=== PATIENT | female | born 1985 | race Caucasian/White ===

== ENCOUNTER 2021-01-13 14:16 | Emergency (ER) | payer OTHER, SELFPAY ==
--- NOTE | 2021-01-13 14:21 | ED.URI ---
HPI - URI/Sore Throat General Chief Complaint: Upper Respiratory Infection Stated Complaint: body ache nausea sore throat Time Seen by Provider: 01/13/21 14:21 Source: patient and RN notes reviewed Mode of arrival: ambulatory Limitations: no limitations History of Present Illness HPI Narrative: 35-year-old female presents to the [facility] with complaints of body aches, cold chills, head pressure and cough. Patient states the cough started 2 days ago all other symptoms started today. On January 05 she had a possible exposure to a COVID-19 patient. Has been quarantined from her children but has been going to work. Patient states that she went to the clinic this morning and had a rapid Covid test which was negative, now requesting a return to work note. Related Data Home Medications Medication Instructions Recorded Confirmed Flexeril 01/13/21 Vistaril 01/13/21 Allergies Allergy/AdvReac Type Severity Reaction Status Date / Time Penicillins Allergy Unknown Hives Unverified 01/13/21 14:46 propoxyphene Allergy Unknown Hives Unverified 01/13/21 14:46 Review of Systems Review of Systems: All systems reviewed & are unremarkable except as noted in HPI and below Constitutional: Constitutional: Reports as per HPI, Reports chills, Reports fatigue, Denies fever(s) and Denies weakness Eyes: Eyes: Reports no additional eye complaints and Denies photophobia ENT: Reports nasal congestion and Reports sore throat Cardiovascular: Cardiovascular: Reports no additional cardiovascular complaints and Denies chest pain Respiratory: Respiratory: Reports as per HPI, Denies chest congestion, Reports cough, Reports dyspnea and Denies wheezing Gastrointestinal: Gastrointestinal: Reports no additional gastrointestinal complaints, Denies abdominal pain, Denies diarrhea, Denies nausea and Denies vomiting Musculoskeletal: Musculoskeletal: Reports no additional musculoskeletal complaints, Denies back pain, Reports myalgias and Denies muscle cramps Integumentary/Breasts: Skin/Breast: Reports system reviewed and no additional complaints, except as docu, Denies pruritus, Denies erythema and Denies rash Neurologic: Reports system reviewed and no additional complaints, except as documented, Denies dizziness, Denies focal weakness and Denies numbness Psychiatric: Psychiatric: Reports no additional psychiatric complaints Endocrine: Endocrine: Reports no additional endocrine complaints PMFSH Comments At the time of my signature, I reviewed and agree with the nursing past medical, surgical, social, and family history. There is no relevant family history pertinent to the patient complaint. Exam Const: General: no acute distress, alert and ill appearing acutely Nutritional Appearance: well nourished Orientation/consciousness: patient oriented x3 HENMT: Ears: external ears normal and TM's normal bilaterally General nose exam: Normal external nose present and Nasal discharge present clear Face and sinus: normal facial exam and sinus tenderness frontal and maxillary Mouth: Yes Normal oral and palatal mucosa present and Yes lip normal Throat: tonsils normal, uvula midline and postnasal drainage Eyes: Conjunctivae: conjunctivae normal Pupils: Equal, round and reactive pupils present Neck: Neck: normal visual inspection and no lymphadenopathy Chest: Chest palpation & inspection: normal inspection of the chest Resp: Effort & Inspection: normal respiratory effort and no use of accessory muscles Auscultation: no crackles, no rales, no rhonchi and no wheezes Other: Strong cough noted. Cardio: Rate: regular rate Rhythm: regular rhythm Back/Spine/Pelvis: Back: no CVA tenderness Skin: General skin exam: normal color Rashes: no rashes Neuro: General: patient oriented x3 and moves all extremities Speech: normal speech Gait exam (Neuro): Normal gait present Extrem: General: normal to inspection Psych: Appearance: grossly normal and well kempt Mental
[2021-01-13 14:24] VITALS: BP 123/76; PULSE 98; RESP 18; O2SAT 99
[2021-01-14 19:55] LABS: SARS-CoV-2 RNA PCR Negative
== END 2021-01-13 14:55 | disposition home or self-care (01) ==
PROVIDERS: Emergency Provider Nurse Practitioner; PCP Nurse Practitioner Family
DX: J40 Bronchitis, not specified as acute or chronic (principal); Z20.822 Contact with and (suspected) exposure to COVID-19
CPT/HCPCS: 87081; 87804; 87880; 99213; C9803; G0463; U0003; U0005

== ENCOUNTER 2021-04-01 09:07 | Emergency (ER) | payer OTHER, SELFPAY ==
[2021-04-01 09:19] VITALS: BP 137/83; PULSE 80; RESP 20; TEMP 37.7; O2SAT 96
--- NOTE | 2021-04-01 09:37 | ED.ANIMALBIT ---
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 BLEEDING CONTROLLED. PATIENT STATES DOG IS UP TO DATE WITH IMMUNIZATIONS AND ANIMAL CONTROL HAS BEEN NOTIFIED. Related Data Home Medications Medication Instructions Recorded Confirmed hydroxyzine HCl 25 mg PO HS 04/01/21 04/01/21 venlafaxine 75 mg PO DAILY 04/01/21 04/01/21 Allergies Allergy/AdvReac Type Severity Reaction Status Date / Time Penicillins Allergy Unknown Hives Verified 04/01/21 10:02 propoxyphene Allergy Unknown Hives Verified 04/01/21 10:02 Review of Systems Review of Systems: CONSTITUTIONAL: Denies fever, chills, or sweats. EYES: Denies visual changes, redness, or discharge. ENT: Denies rhinorrhea, congestion, sore throat, or otalgia. CARDIOVASCULAR: Denies chest pain, palpitations, or edema. RESPIRATORY: Denies cough or dyspnea. GASTROINTESTINAL: Denies abdominal pain, nausea, vomiting, or diarrhea. GENITOURINARY: Denies dysuria or hematuria. SKIN: Denies rash or itching. Dog bite to chin MUSCULOSKELETAL: Denies back pain, joint pain, or myalgia. NEUROLOGIC: Denies headache, numbness, or weakness. PSYCHIATRIC: Denies anxiety or depression. PMFSH Comments At time of signature, agree with nursing past medical, surgical, social and family history. There is no relevant family history pertinent to the presenting complaint Exam Narrative: GENERAL: Well-appearing, well-nourished, and in no acute distress. HEAD: Normocephalic, atraumatic. EYES: PERRLA and EOMI. ENT: Nares clear, no rhinorrhea or epistaxis. Mucous membranes moist. NECK: Supple. CHEST: Clear to auscultation. No respiratory distress. HEART: Regular rate and rhythm. No murmur heard. Normal peripheral pulses. ABDOMEN: Soft, nontender, nondistended, normal active bowel sounds. EXTREMITIES: Normal range of motion. No edema. SKIN: Warm, dry, no rash. NEURO: No focal deficits. Alert and oriented x3. Gilbert Coma Scale Eye Opening: Spontaneous 4 [place] Coma Scale Motor: Obeys Commands 6 [place] Coma Scale Verbal: Oriented 5 [place] Coma Scale Total 15 Course Vital Signs Vital signs: Vital Signs Temperature 37.7 C H 04/01/21 09:19 Pulse Rate 80 04/01/21 09:19 Respiratory Rate 20 04/01/21 09:19 Blood Pressure 137/83 04/01/21 09:19 Pulse Oximetry 96 04/01/21 09:19 Temperature 37.7 C H 04/01/21 09:19 Pulse Rate 80 04/01/21 09:19 Respiratory Rate 20 04/01/21 09:19 Blood Pressure 137/83 04/01/21 09:19 Pulse Oximetry 96 04/01/21 09:19 MDM - Animal Bite Differential Diagnosis Differential diagnosis: Likely dog bite Medical Records Attestation: I reviewed the patient's medical records. Lab Data Attestation: I reviewed the patient's lab results. Critical Care Time Critical Care Time Critical Care Time: No Discharge Plan Discharge Clinical Impression: Dog bite Patient Disposition: Acute Care Hospital Condition: Stable Instructions: Animal Bite (ED) Additional Instructions: Go directly to [facility] emergency room and do not eat or drink in route to [facility] emergency room Prescriptions: No Action venlafaxine 75 mg capsule,extended release 24hr 75 mg PO DAILY RF: 0 hydroxyzine HCl 25 mg tablet 25 mg PO HS RF: 0 Follow-up/Referrals: Lorri,Stephanie Vital APN [Primary Care Provider] -
--- NOTE | 2021-04-01 09:54 | ED.ANIMALBIT ---
HPI - Animal Bite General Chief Complaint: Animal Bite Stated Complaint: Dog bite Time Seen by Provider: 04/01/21 09:37 Source: patient History of Present Illness HPI narrative: Patient presents with multiple lacerations to her chin. 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 Patient states her last tetanus shot was 2 months ago. complaint: animal bite Related Data Home Medications Medication Instructions Recorded Confirmed hydroxyzine HCl 25 mg PO HS 04/01/21 04/01/21 venlafaxine 75 mg PO DAILY 04/01/21 04/01/21 Allergies Allergy/AdvReac Type Severity Reaction Status Date / Time Penicillins Allergy Unknown Hives Verified 04/01/21 10:02 propoxyphene Allergy Unknown Hives Verified 04/01/21 10:02 Review of Systems Review of Systems: CONSTITUTIONAL: Denies fever, chills, or sweats. EYES: Denies visual changes, redness, or discharge. ENT: Denies rhinorrhea, congestion, sore throat, or otalgia. CARDIOVASCULAR: Denies chest pain, palpitations, or edema. RESPIRATORY: Denies cough or dyspnea. GASTROINTESTINAL: Denies abdominal pain, nausea, vomiting, or diarrhea. GENITOURINARY: Denies dysuria or hematuria. SKIN: Denies rash or itching. Dog bite to chin MUSCULOSKELETAL: Denies back pain, joint pain, or myalgia. NEUROLOGIC: Denies headache, numbness, or weakness. PSYCHIATRIC: Denies anxiety or depression. PMFSH Comments At time of signature, agree with nursing past medical, surgical, social and family history. There is no relevant family history pertinent to the presenting complaint Exam Narrative: GENERAL: Well-appearing, well-nourished, and in no acute distress. HEAD: Normocephalic, atraumatic. EYES: PERRLA and EOMI. ENT: Nares clear, no rhinorrhea or epistaxis. Mucous membranes moist. NECK: Supple. CHEST: Clear to auscultation. No respiratory distress. HEART: Regular rate and rhythm. No murmur heard. Normal peripheral pulses. ABDOMEN: Soft, nontender, nondistended, normal active bowel sounds. EXTREMITIES: Normal range of motion. No edema. SKIN: Warm, dry, no rash. 1-1/2 x 2 cm gaping laceration to right lower chin left lower chin 1 cm superficial laceration as well as a 2-1/2 gaping centimeter laceration to the left lower chin both are through and through into the inner lip NEURO: No focal deficits. Alert and oriented x3. Gilbert Coma Scale Eye Opening: Spontaneous 4 [place] Coma Scale Motor: Obeys Commands 6 [place] Coma Scale Verbal: Oriented 5 [place] Coma Scale Total 15 Course Vital Signs Vital signs: Vital Signs Temperature 37.7 C H 04/01/21 09:19 Pulse Rate 80 04/01/21 09:19 Respiratory Rate 20 04/01/21 09:19 Blood Pressure 137/83 04/01/21 09:19 Pulse Oximetry 96 04/01/21 09:19 Temperature 37.7 C H 04/01/21 09:19 Pulse Rate 80 04/01/21 09:19 Respiratory Rate 20 04/01/21 09:19 Blood Pressure 137/83 04/01/21 09:19 Pulse Oximetry 96 04/01/21 09:19 Addressed elevated BP today. Today's blood pressure higher than recommended range. Discussed importance of follow -up with PCP and possible predatory animal exterminator effects/cardiovascular events related to HTN. Currently patient denies headache, dizziness, vision changes, CP or shortness of breath. MDM - Animal Bite Differential Diagnosis Differential diagnosis: Likely bite by animal, cat bite, dog bite and rabies contact Medical Records Attestation: I reviewed the patient's medical records. Lab Data Attestation: I reviewed the patient's lab results. Critical Care Time Critical Care Time Critical Care Time: No Discharge Plan Discharge Clinical Impression: Dog bite Patient Disposition: Acute Care Hospital Condition: Stable Instructions: Animal Bite (ED) Additional Instructions: Go directly to [facility] emergency room and do not eat or drink in route to [facility] emergency room Prescriptions: No Action venlafaxine 75 mg capsule,extended release 24hr 75 mg PO DAILY RF: 0 hy
[2021-04-01] MEDS: KETOROLAC (*BKC) 60 MG/2 ML VIAL IM (10:06)
== END 2021-04-01 10:21 | disposition short-term general hospital (02) ==
PROVIDERS: Emergency Provider Nurse Practitioner Family; PCP Nurse Practitioner Family
DX: S01.81XA Laceration without foreign body of other part of head, initial encounter (principal); W54.0XXA Bitten by dog, initial encounter; Y99.0 Civilian activity done for income or pay; F41.9 Anxiety disorder, unspecified
CPT/HCPCS: 96372; 99213; G0463; J1885

== ENCOUNTER 2022-12-25 12:20 | Outpatient (CLI) | payer OTHER, SELFPAY ==
[2022-12-25 12:43] LABS: Basophils Absolute Auto 0.1 K/mm3 (0.0-0.1); Basophils Percent Auto 0.5 % (0.2-1.2); Eosinophils Absolute Auto 0.1 K/mm3 (0-0.3); Eosinophils Percent Auto 0.7 % (0-4.4); Hematocrit 40.2 % (37.0-47.0); Immature Granulocyte Absolute 0.02 K/mm3 (0.00-0.031); Immature Granulocyte Percent A 0.2 % (0-0.5); Lymphocytes Absolute Auto 5.16 K/mm3 (0.9-3.2); Lymphocytes Percent Auto 46.5 % (18.3-44.2); Mean Corpuscular HGB Conc 32.3 g/dl (32-36); Mean Corpuscular Hemoglobin 26.9 pg (26-34); Mean Corpuscular Volume 83.1 fl (80-100); Mean Platelet Volume 9.3 fl (7.4-10.4); Monocytes Absolute Auto 0.7 K/mm3 (0.1-0.6); Neutrophils Absolute Auto 5.1 K/mm3 (1.3-6.7); Neutrophils Percent Auto 46.1 % (45.5-73.1); Platelet Count Result 521 k/mm3 (150-375); Red Blood Count 4.84 M/mm3 (4.2-5.4); Red Cell Distribution Width 13.8 % (11.5-14.5); White Blood Count 11.1 K/mm3 (4.5-10.0)
[2022-12-25 12:58] LABS: Atypical Lymphocytes Present; Platelet Estimate Increased (Adequate); Schistocytes None Seen (NORMAL)
== END 2022-12-25 12:21 | disposition home or self-care (01) ==
LOC: ANHLAB 12:20
PROVIDERS: PCP Nurse Practitioner Family; Visit Provider Obstetrics & Gynecology
DX: N92.1 Excessive and frequent menstruation with irregular cycle (principal)
CPT/HCPCS: 36415; 84443; 85025

== ENCOUNTER 2023-01-10 00:31 | Day surgery (SDC) | payer OTHER, SELFPAY ==
[2023-01-03 15:39] VITALS: BMI 37.0
--- NOTE | 2023-01-03 15:46 | SUR.PREOP ---
Report to the Outpatient Waiting Room, entrance under the green pavilion located off [facility], at time 0600 on date 01/10/23. Planned Procedure Time: 0730. Time changes happen often and if your time is changed the preop area will call you the afternoon before. - You and your visitor will be asked to self-screen and do not enter if you have any COVID symptoms. - A mask is optional within the hospital at this time. Patients may have clear liquids (water, carbonated beverages, clear teas, apple juice) until 3 hours prior to surgery with a maximum of 20 ounces. - No food from midnight until time of surgery - Infants may have breast milk until 4 hours before surgery, infant formula 6 hours prior to surgery. - Children will be allowed to drink immediately following surgery. If applicable, please bring a bottle or sippy cup to assist with drinking. Juice, water, soda, and popsicles are readily available. For infants on formula, please bring formula the day of surgery. Pacifiers are allowed. Take the following medications with a SIP of water the morning of surgery: N/A DO NOT STOP ANY OF YOUR OTHER PRESCRIPTION MEDICATIONS PRIOR TO SURGERY ?EXCEPT THE FOLLOWING Medications to discontinue per physician STOP ALL VITAMINS AND SUPPLIMENTS 3 DAYS PRIOR Date to take last dose 01/07/23 Please no make-up, nail thai, hairspray, perfume, deodorant, or body powder the day of surgery. No jewelry (including any body piercings) or valuables the day of surgery, leave them at home. Please take a shower or bath the night before, or the morning of, surgery with an antibacterial soap. Wear comfortable, loose fitting clothing. Children are encouraged to wear pajamas. - Jewelry must be removed prior to entering the operating room. Rings and piercings that are not removed may be cut off. - The hospital will not accept responsibility for valuables. - Please leave all valuables, including medications, at home the day of surgery. If you are going home after surgery, a licensed driver license examiner must drive you home. - NO public transportation without another adult if you receive anesthesia. - We recommend that an adult stay with you for 24 hours following discharge. - We also recommend that you do not drive, make important decision, drink alcoholic beverages, or take any drugs that were not prescribed by your health care provider for at least 24 hours after your discharge time. For Pediatric surgeries, we recommend two adults accompany the child home. Follow any additional instructions given to you from your surgeon. If you or anyone in your household have experienced Covid symptoms in the past week, please notify your surgeon or the nurse liaison at the phone number below for possible testing. Telephone instructions given to MAGUE FERRELL and asked if any additional questions and then verbalized understanding. Patient advised to call surgeon office or pre surgery nurse liaison [phone] if any additional questions.
--- NOTE | 2023-01-09 16:29 | PM.IMHP ---
H&P: HPI History of Present Illness Date/Time: 01/09/23 16:29 37-year-old 5 para [id number] female presents with complaints of heavy vaginal bleeding cramping and discomfort. States that menstrual cycles are now occurring every 3 weeks with 7 today and days very heavy with clotting cramping as well as 3-4 days at her very heavy bleeds through both tampon and pad. Has been seen emergency room for this pain and discomfort but no other significant evaluation had been undertaken. She did have an ultrasound which essentially was normal with no other significant etiology of her pain. Also has had Essure which she states since that time she has had a place she has had significant pain and discomfort and the adnexal areas bilaterally. We have discussed multiple options and will per proceeding with hysterectomy as noted in her assessment and plan below. Chief Complaint: 1. Menometrorrhagia Review of Systems Review of Systems: All systems reviewed & are unremarkable except as noted in HPI and below PMFSH Past Medical History Medical History Acute anxiety Anemia Encounter for Essure implantation 2016 [facility] Surgical History Surgical History History of cholecystectomy History of facial surgery dog bite Family History Family History Father Gout Diabetes mellitus Mother Diabetes mellitus Social History Social History Years smoked: 15 Smoking status: Current every day smoker Tobacco type: cigarettes Alcohol intake: never Substance use: never Substance use type: does not use Living arrangements: with family Occupation/Education: occupation 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 Gender identity (if verbalized by the patient): Female Sexual Orientation (if Verbalized by the Patient): Straight or Heterosexual Spiritual care concerns: No Meds Home Medications and Allergies Home Medications Medication Instructions Recorded Confirmed Type hydroxyzine HCl 25 mg tablet 25 mg PO HS 04/01/21 01/03/23 History venlafaxine 75 mg capsule,extended 75 mg PO HS 04/01/21 01/03/23 History release 24 hr ergocalciferol (vitamin D2) 1,250 1,250 mcg PO WEEKLY 01/03/23 01/03/23 History mcg (50,000 unit) capsule ibuprofen 800 mg PO DAILY 01/03/23 01/03/23 History iron 1 tab-cap PO DAILY 01/03/23 01/03/23 History Allergies Allergy/AdvReac Type Severity Reaction Status Date / Time Penicillins Allergy Unknown Hives Verified 01/03/23 15:11 propoxyphene Allergy Unknown Hives Verified 01/03/23 15:11 Exam Const: General: cooperative, healthy appearing and comfortable Resp: Effort & Inspection: normal respiratory effort Auscultation: clear to auscultation bilaterally Cardio: Rate: regular rate Rhythm: regular rhythm GI: Inspection: normal to inspection Auscultation: normal bowel sounds : External Female Exam: normal external appearance Speculum Exam - Vagina: normal appearance of the vagina Speculum Exam - Cervix: normal appearance of the cervix Bimanual exam- vagina & uterus: enlarged ( 8-10 week size) Bimanual Exam- Adnexa, other: normal adnexae Assessment and Plan Assessment and plan (1) Menometrorrhagia: Code(s): N92.1 - Excessive and frequent menstruation with irregular cycle Status: Acute (2) Dysmenorrhea: Code(s): N94.6 - Dysmenorrhea, unspecified Status: Acute (3) Enlarged uterus: Code(s): N85.2 - Hypertrophy of uterus Status: Acute (4) Encounter for removal of Essure: Code(s): Z45.89 - Encounter for adjustment and management of other implanted devices Status: Acute Plan 1. Proceed with robotic assisted laparoscopic total hysterectomy with bilateral salpingectomy. Ovarian preser
[2023-01-10] VITALS (14 sets, daily range): BP systolic 97–122; BP diastolic 56–90; PULSE 69–90; RESP 12–18; TEMP 36.6–37.1; O2SAT 93–98
[2023-01-10] MEDS: LACTATED RINGERS 1,000 ML 30 ML IV CONT ×2 (07:00→09:10)
[2023-01-10] MEDS: ACETAMINOPHEN 500 MG TABLET 1000 MG PO (07:00)
[2023-01-10] MEDS: KETOROLAC 15 MG/ML VIAL (*BKC) IV PUSH (07:00)
--- NOTE | 2023-01-10 07:11 | WPDHPUPDATE1 ---
History and Physical Update Update Date/Time: 01/10/23 07:11 History and Physical has been reviewed, including an updated exam of the patient. There are NO changes in the patient's condition. Risks, benefits, and alternatives have been discussed and questions answered. Patient agrees to proceed with procedure.
--- NOTE | 2023-01-10 07:13 | P.PNAN_ITS ---
Anes - Initial Pre Proc Eval Procedure: Operation Date: 01/10/23 07:30 Proposed Procedures p Robotic Assisted Total Laparoscopic Hysterectomy with Bilateral Salpingectomy - Seng Floyd MD Date/Time: 01/10/23 07:13 Surgeon: Seng Floyd MD Pre Op Diagnosis: menometrorrhagia Patient Data Age: 37 Gender: F Height: 1.63 m Weight: 97.98 kg Allergies Allergy/AdvReac Type Severity Reaction Status Date / Time Penicillins Allergy Unknown Hives Verified 01/03/23 15:11 propoxyphene Allergy Unknown Hives Verified 01/03/23 15:11 Home Medications Medication Instructions Recorded Confirmed Type hydroxyzine HCl 25 mg tablet 25 mg PO HS 04/01/21 01/03/23 History venlafaxine 75 mg capsule,extended 75 mg PO HS 04/01/21 01/03/23 History release 24 hr ergocalciferol (vitamin D2) 1,250 1,250 mcg PO WEEKLY 01/03/23 01/03/23 History mcg (50,000 unit) capsule ibuprofen 800 mg PO DAILY 01/03/23 01/03/23 History iron 1 tab-cap PO DAILY 01/03/23 01/03/23 History Patient hx anesthesia problems: none Family hx anesthesia problems: none Results Review: All pre-operative results and documents have been reviewed as part of the pre- operative evaluation. 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 Gender identity (if verbalized by the patient): Female Sexual Orientation (if Verbalized by the Patient): Straight or Heterosexual Spiritual care concerns: No Anes - Eval Final PreProcedure Day of Procedure 01/10/23 07:13 Patient weight: obese Heart: regular rate and rhythm Lungs: clear to auscultation Airway: Mallampati scale class III (has multiple chipped teeth and caries; discussed possibility of damaging the teeth with intubation) Neurological: alert and oriented Last oral intake: >/= 8 hours ASA classification: III Emergent: no Anesthetic plan: proceed Anesthesia type and monitoring: general ETT and standard monitoring Results Review: All pre-operative results and documents have been reviewed as part of the pre- operative evaluation. Informed Consent: The patient's anesthetic plan and its attendant risks and benefits were discussed with the patient/family/POA. Questions were solicited and answers provided to the satisfaction of the patient/family/POA.
[2023-01-10] MEDS: ceFAZolin 2 GM/D5W 50 ML 2 GM/50 ML BAG IVPB (07:27)
--- NOTE | 2023-01-10 09:01 | P.OP_ITS ---
Procedure Note - Detailed Date of Procedure 01/10/23 Pre-op Diagnosis 1. Menometrorrhagia 2. Dysmenorrhea 3. Enlarged uterus 4. Essure removal Post-op Diagnosis Same Procedure Performed 1. Robotic assisted total laparoscopic hysterectomy with bilateral salpingectomy Surgeon Seng Floyd MD Anesthesia General Findings enlarged globular uterus. Description of Procedure Patient prepped draped usual manner for this procedure. Cervical instruments were placed for uterine mobility throughout the case. Attention was then placed to the abdomen those trocar sites were marked and placed also under direct visualization. Attached to the [email or web address] system in instruments were placed under direct visualization. Once this was done surgeon moved to the console. Mesial salpinx bilaterally cauterized cut and tubes removed without difficulty. Round ligament was cauterized and cut bladder flap developed in posterior leaf the broad ligament was also incised. Utero-ovarian ligaments cauterized cut separate the ovary from the uterus. Uterine vessels were then skeletonized cauterized and cut. Anterior colpotomy incision was then made and this carried circumferentially to separate the cervix from the vagina. Uterus was delivered into the vagina. Small amount of oozing from the left angle which was rendered hemostatic via cautery. Cuff was then closed using V lock suture beginning at the left angle past the midline. Then continuing from the right angle past the midline. Irrigation was undertaken there was no bleeding Joseph was empirically placed over the raw incision areas. Gas allowed to escape trocars removed incisions approximated using 4-0 Monocryl. Patient was sent to recovery room in stable condition. Estimated Blood Loss 100 Drains No Packing No Pathology Yes Complications No immediate complications Condition Stable Disposition PACU [facility] Billing Surgery - Charge Forward: Surgery Billing
[2023-01-10] MEDS: fentaNYL CITRATE INJ (*CRX) 100 MCG/2 ML VIAL 25 MCG IV PUSH ×8 (09:22→09:46)
[2023-01-10] MEDS: HYDROmorphone HCL INJ (*CRX) 1 MG/ML SYR 0.5 MG IV PUSH ×3 (09:55→10:33)
--- NOTE | 2023-01-10 10:58 | OBPPTRN ---
Patient transferred from pacu to post room #284 via bed. Support person present. Oriented to unit and room. Patient verbalizes understanding.
[2023-01-10] MEDS: DEXTROSE 5%/0.45% SOD CHL 1,000 ML 125 ML IV CONT (11:15)
[2023-01-10] MEDS: KETOROLAC 30 MG/ML VIAL (*BKC) IV PUSH ×2 (11:16→16:29)
[2023-01-10] MEDS: SIMETHICONE 80 MG TAB.CHEW PO (16:32)
[2023-01-10] MEDS: HYDROcodone/acetaminophen (*CRX) 5-325 MG TABLET 1 TAB (19:29)
[2023-01-11 00:20] VITALS: BP 121/61; PULSE 76; RESP 16; TEMP 36.8
[2023-01-11 04:45] VITALS: BP 105/62; PULSE 74; RESP 18; TEMP 36.7
[2023-01-11 04:55] LABS: Basophils Absolute Auto 0.1 K/mm3 (0.0-0.1); Basophils Percent Auto 0.3 % (0.2-1.2); Eosinophils Percent Auto 0.1 % (0-4.4); Hematocrit 35.1 % (37.0-47.0); Hemoglobin 11.4 g/dL (12.0-15.0); Immature Granulocyte Absolute 0.04 K/mm3 (0.00-0.031); Immature Granulocyte Percent A 0.3 % (0-0.5); Lymphocytes Absolute Auto 4.93 K/mm3 (0.9-3.2); Mean Corpuscular HGB Conc 32.5 g/dl (32-36); Mean Corpuscular Volume 83.2 fl (80-100); Mean Platelet Volume 9.3 fl (7.4-10.4); Monocytes Absolute Auto 1.3 K/mm3 (0.1-0.6); Monocytes Percent Auto 7.9 % (2.6-8.5); Neutrophils Absolute Auto 9.6 K/mm3 (1.3-6.7); Neutrophils Percent Auto 60.4 % (45.5-73.1); Platelet Count Result 431 k/mm3 (150-375); Red Blood Count 4.22 M/mm3 (4.2-5.4); Red Cell Distribution Width 14.2 % (11.5-14.5); White Blood Count 15.9 K/mm3 (4.5-10.0)
[2023-01-11 09:25] VITALS: BP 116/68; PULSE 87; RESP 16; TEMP 36.9; O2SAT 94
--- NOTE | 2023-01-11 09:51 | WPDANESPN ---
Anes - Prog Note Post-Op Date/Time: 01/11/23 09:51 Cardiovascular status: normal Respiratory status: normal Airway patency: baseline Mental status: baseline Post-Op hydration status: normal Vital Signs: Last Vital Signs Temp 36.7 C 01/11/23 04:45 Pulse 74 01/11/23 04:45 Resp 18 01/11/23 04:45 BP 105/62 01/11/23 04:45 Pulse Ox 96 01/10/23 19:15 O2 Del Method Room Air 01/10/23 17:00 O2 Flow Rate 1 01/10/23 16:30 Pain Score (VAS): 10/05 I/O: Intake & Output 01/10/23 01/11/23 01/11/23 23:59 07:59 15:59 Intake Total 1700 800 Output Total 900 1475 150 Balance 800 -675 -150 Laboratory Tests 01/11/23 04:47 01/11/23 04:47 WBC 15.9 H RBC 4.22 Hgb 11.4 L Hct 35.1 L MCV 83.2 MCH 27.0 MCHC 32.5 RDW 14.2 Plt Count 431 H MPV 9.3 Immature Gran % (Auto) 0.3 Neut % (Auto) 60.4 Lymph % (Auto) 31.0 [place] % (Auto) 7.9 Eos % (Auto) 0.1 Baso % (Auto) 0.3 Lymph # (Auto) 4.93 H [place] # (Auto) 1.3 H Eos # (Auto) 0.0 Baso # (Auto) 0.1 Abs Immat Gran (auto) 0.04 H Absolute Neuts (auto) 9.6 H Absolute Nucleated RBC 0.0 Nucleated RBC % 0.0 Post-procedural complaints: none Patient Feedback: Patient satisfied with anesthetic care.
== END 2023-01-11 11:19 | disposition home or self-care (01) ==
LOC: ANHSURGERY 06:11 → ANHOB2 01-11 07:45
PROVIDERS: PCP Nurse Practitioner Family; Visit Provider Obstetrics & Gynecology
PROC: (CPT 58552; principal; 2023-01-10 07:30)
DX: N92.1 Excessive and frequent menstruation with irregular cycle (principal); N94.6 Dysmenorrhea, unspecified; N85.2 Hypertrophy of uterus; F17.210 Nicotine dependence, cigarettes, uncomplicated
CPT/HCPCS: 58552; S2900; 36415; 85025; 86850; 86900; 86901; 88307; 99199; A9270; J0690; J1100; J1170; J1885; J1940; J2250; J2370; J2405; J2704; J2710; J3010; J7030; J7120; Q9968

== ENCOUNTER 2023-11-04 12:03 | Emergency (ER) | payer OTHER, SELFPAY ==
[2023-11-04 12:08] VITALS: BP 130/113; PULSE 95; RESP 20; TEMP 37.3; O2SAT 98
--- NOTE | 2023-11-04 12:49 | ED.URI ---
HPI - URI/Sore Throat General Chief Complaint: Upper Respiratory Infection Stated Complaint: Cough/Sore Throat/Headache Time Seen by Provider: 11/04/23 12:40 Source: patient and RN notes reviewed Mode of arrival: ambulatory Limitations: no limitations History of Present Illness HPI Narrative: Patient presents today with a 3 day history of sore throat, congestion, rhinorrhea, headache, body aches, left ear pain. Denies fever shortness of breath. Currently rates her pain 7/10 and has tried no [id number] treatment prior to arrival. Son is sick with similar symptoms. Related Data Home Medications Medication Instructions Recorded Confirmed hydroxyzine HCl 25 mg tablet 25 mg PO HS 04/01/21 01/28/23 venlafaxine 75 mg capsule,extended 75 mg PO HS 04/01/21 01/28/23 release 24 hr ergocalciferol (vitamin D2) 1,250 1,250 mcg PO WEEKLY 01/03/23 01/28/23 mcg (50,000 unit) capsule ibuprofen 800 mg PO DAILY 01/03/23 01/28/23 iron 1 tab-cap PO DAILY 01/03/23 01/28/23 naproxen 500 mg tablet mg 11/04/23 Allergies Allergy/AdvReac Type Severity Reaction Status Date / Time hydrocodone Allergy Intermediate Hives Verified 01/28/23 10:34 Penicillins Allergy Unknown Hives Verified 01/28/23 10:29 propoxyphene Allergy Unknown Hives Verified 01/28/23 10:29 Review of Systems Review of Systems: CONSTITUTIONAL: Denies fever, chills, or sweats.+ body aches EYES: Denies visual changes, redness, or discharge. ENT: + left ear pain, sore throat, congestion rhinorrhea CARDIOVASCULAR: Denies chest pain, palpitations, or edema. RESPIRATORY: Denies cough or dyspnea. GASTROINTESTINAL: Denies abdominal pain, nausea, vomiting, or diarrhea. GENITOURINARY: Denies dysuria or hematuria. SKIN: Denies rash, itching, or wounds. MUSCULOSKELETAL: Denies back pain, joint pain, or myalgia. NEUROLOGIC: Denies numbness, tingling, or weakness.+ headache PSYCH: Denies depression or anxiety. [facility] [place] Past Medical History Medical History Acute anxiety Anemia Encounter for Essure implantation 2016 Vertigo Surgical History Surgical History History of cholecystectomy History of facial surgery dog bite History of robot-assisted laparoscopic hysterectomy (01/10/23) Robotic assisted total laparoscopic hysterectomy with bilateral salpingectomy Family History Family History Father Gout Diabetes mellitus Mother Diabetes mellitus Social History Social History Years smoked: 15 Smoking status: Current every day smoker Alcohol intake: never Substance use: never Substance use type: does not use Lack of Transportation: No Lack of Food: Never True Current Housing: I Have Housing Concerned About Future Housing: No Difficulty Paying Gas/Electric Bills: No Difficulty Paying for Meds: No Currently Unemployed: No Education: Trade/Vocational Certificate Difficulty w/ Childcare or Family Care: No Living arrangements: with family Occupation/Education: occupation 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 Please see nursing chart for further information. There is no relevant family history pertinent to the presenting complaint S Exam Narrative: GENERAL: Mildly ill-appearing, well-nourished, and in no acute distress. HEAD: Normocephalic, atraumatic. EYES: EOMI. No redness or drainage. Conjunctivae normal. ENT: Mucous membranes pink and moist. Nares congested. N
[2023-11-04 13:09] VITALS: BP 120/84
== END 2023-11-04 13:02 | disposition home or self-care (01) ==
PROVIDERS: Emergency Provider Nurse Practitioner; PCP Nurse Practitioner Family
DX: B34.9 Viral infection, unspecified (principal); Z20.822 Contact with and (suspected) exposure to COVID-19; F17.200 Nicotine dependence, unspecified, uncomplicated; D64.9 Anemia, unspecified
CPT/HCPCS: 87081; 87426; 87804; 87880; 99213; G0463